=== PATIENT | male | born 1970 | race African-American/Black ===

== ENCOUNTER 2020-06-11 10:56 | Observation (INO) | payer OTHER ==
[~2020-06-11] VITALS: Ht 175.3 cm; Wt 78.0 kg
[2020-06-11 10:50] VITALS: BP 135/85
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
[2020-06-11 15:00] VITALS: BP 153/75
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
[2020-06-11] MEDS ORDERED: DOCU-109 PO (16:14)
[2020-06-11] MEDS ORDERED: PREG300C PO (16:14)
[2020-06-11] MEDS ORDERED: OXYC1TAB22 PO (16:14)
[2020-06-11] MEDS ORDERED: DIAZ5TAB4 PO (16:14)
[2020-06-11] MEDS ORDERED: LACT1CAP29 PO (16:14)
[2020-06-11] MEDS ORDERED: TIZA4TAB2 PO (16:14)
[2020-06-11] MEDS ORDERED: oxyCODONE/APAP 10/325 1 TAB TABLET PO PRN (16:30)
[2020-06-11] MEDS ORDERED: DEXTROSE 50% 25 GM / 50ML DISP.SYRIN. IV PRN (16:30)
[2020-06-11] MEDS: INSULIN LISPRO 300 UNITS/3 ML VIAL. SQ SCH ×2 (17:07)
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
[2020-06-11 19:30] VITALS: BP 138/76
[2020-06-11] MEDS ORDERED: oxyCODONE/APAP 5/325 1 TAB TABLET PO ONE (20:30)
[2020-06-11] MEDS: tiZANidine 4 MG TABLET. PO SCH (20:30)
[2020-06-11] MEDS: diazePAM 5 MG TABLET PO SCH (20:30)
[2020-06-11] MEDS: PREGABALIN 75 MG CAPSULE PO SCH (20:30)
[2020-06-11] MEDS ORDERED: INSULIN GLARGINE SYRINGE. SQ SCH (21:00)
[2020-06-11 23:42] VITALS: BP 108/64
[2020-06-12] MEDS: oxyCODONE/APAP 7.5/325 1 TAB TABLET PO PRN ×2 (01:29→08:39)
[2020-06-12 03:53] VITALS: BP 125/60
[2020-06-12 07:00] VITALS: BP 136/80
[2020-06-12] MEDS: INSULIN LISPRO 300 UNITS/3 ML VIAL. SQ SCH ×4 (08:00→12:00)
[2020-06-12] MEDS: diazePAM 5 MG TABLET PO SCH (08:36)
[2020-06-12] MEDS: PREGABALIN 75 MG CAPSULE PO SCH (08:38)
[2020-06-12] MEDS: tiZANidine 4 MG TABLET. PO SCH (08:39)
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
[2020-06-12] MEDS ORDERED: DOCUSATE SODIUM 100 MG CAPSULE. PO SCH (09:00)
[2020-06-12] MEDS ORDERED: LACTOBACILLUS RHAMNOSUS GG 1 CAPSULE. PO SCH (09:00)
--- NOTE | 2020-06-12 10:11 | NUR ---
BRAIN following. Discussed with RN. BRAIN verified pt is a SNF resident at [facility]. They can take pt back when he is medically ready, and do not require a COVID test. Potential plans for discharge today. Updates faxed to [facility]. Discussed with Dr. Aquino. BRAIN will continue to follow. Addendum: 06/12/20 at 1128 by COLEMAN DE LA PAZ Discharge orders faxed to [facility], transportation is on their way. RN notified.
[2020-06-12] MEDS ORDERED: OXYC1TAB22 PO (10:26)
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
[2020-06-12 11:00] VITALS: BP 138/93
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
--- NOTE | 2020-06-12 12:32 | NUR ---
Patient discharge to [facility] nursing facility today via wheelchair accompany by transport person. Patient is stable, no iv, prescription and discharge paperwork was given to patient in yellow packet. Patient verbalized understanding of the followup and discharge instruction. Nursing communication was called to [facility] and Josie RN was taking report.
== END 2020-06-12 12:36 ==
LOC: 4 NORTH 11:00 → INTOOBSV 11:00
PROVIDERS: ADMIT Internal Medicine; ATTEND Internal Medicine
DX: M62.81 Muscle weakness (generalized) (principal); E11.41 Type 2 diabetes mellitus with diabetic mononeuropathy; I63.9 Cerebral infarction, unspecified; M21.332 Wrist drop, left wrist; R20.1 Hypoesthesia of skin; Z79.4 Long term (current) use of insulin; Z79.899 Other long term (current) drug therapy
CPT/HCPCS: 82962; 96372; 97161; 97166; 97535; G0378; G0379; J1815